=== PATIENT | female | born 1960 | race Caucasian/White ===

== ENCOUNTER → 2020-02-25 09:13 | Outpatient (BNVA) | payer BC, SELFPAY | PROVIDERS: Visit Provider Nurse Practitioner | DX: E03.0 Congenital hypothyroidism with diffuse goiter (principal); E78.2 Mixed hyperlipidemia; Z12.39 Encounter for other screening for malignant neoplasm of breast | CPT/HCPCS: 80053; 80061; 84439; 84443; 84481; 85025 ==

== ENCOUNTER 2020-03-13 09:05 | Outpatient (CLI) | payer BC, SELFPAY ==
--- NOTE | 2020-03-13 09:30 | US_ITS ---
WS: [id number] ULTRASOUND THYROID TECHNIQUE: Ultrasound of the thyroid. CLINICAL INFORMATION: enlarged thyroid COMPARISON: None. FINDINGS: Thyroid: Small thyroid volume in both thyroid lobes. No thyroid nodules are present. Right thyroid lobe: 1.4 cm x 0.7 cm x 0.4 cm Left thyroid lobe: 1.3 cm x 0.6 cm x 0.4 cm. Isthmus: 0.3 mm. Cervical lymphadenopathy: None. US/US thyroid [id number] IMPRESSION: 1. Hypoplastic small volume thyroid involving both lobes 2. No thyroid nodules
== END 2020-03-13 09:06 | disposition home or self-care (01) ==
LOC: US 09:08
PROVIDERS: PCP Nurse Practitioner; Visit Provider Nurse Practitioner
DX: E04.9 Nontoxic goiter, unspecified (principal)
CPT/HCPCS: 76536

== ENCOUNTER 2020-04-07 11:32 | Outpatient (CLI) | payer BC, SELFPAY ==
--- NOTE | 2020-04-07 12:00 | MM_ITS ---
WS: [id number] BILATERAL DIGITAL SCREENING MAMMOGRAPHY WITH CAD CLINICAL INFORMATION: screen HISTORY: Screening mammogram. No current complaints. COMPARISON: TECHNIQUE: Bilateral CC and MLO views. FINDINGS: Scattered fibroglandular densities bilaterally. No suspicious focal mass, asymmetry, calcifications, or architectural distortion. No evidence of malignancy. MM/[place] [id number] IMPRESSION: BI-RADS: 1-Negative FOLLOW UP: 1 Year Follow-up Recommend return to annual screening mammography.
== END 2020-04-07 11:33 | disposition home or self-care (01) ==
LOC: RADSHAW 11:35
PROVIDERS: PCP Nurse Practitioner; Visit Provider Nurse Practitioner
DX: Z12.31 Encounter for screening mammogram for malignant neoplasm of breast (principal)
CPT/HCPCS: 77067

== ENCOUNTER → 2020-09-07 15:08 | Outpatient (BNVA) | payer BC, SELFPAY | PROVIDERS: PCP Nurse Practitioner; Visit Provider Nurse Practitioner | DX: E03.0 Congenital hypothyroidism with diffuse goiter (principal); I10 Essential (primary) hypertension; E78.2 Mixed hyperlipidemia | CPT/HCPCS: 80053; 80061; 84443 ==

== ENCOUNTER → 2021-02-25 09:07 | Outpatient (BNVA) | payer BC, SELFPAY | PROVIDERS: PCP Nurse Practitioner; Visit Provider Nurse Practitioner | DX: I10 Essential (primary) hypertension (principal); E03.0 Congenital hypothyroidism with diffuse goiter | CPT/HCPCS: 80053; 80061; 84443 ==

== ENCOUNTER → 2021-09-27 13:48 | Outpatient (BNVA) | payer BC, SELFPAY | PROVIDERS: PCP Nurse Practitioner; Visit Provider Obstetrics & Gynecology | DX: N81.3 Complete uterovaginal prolapse (principal) | CPT/HCPCS: 81000 ==

== ENCOUNTER → 2021-10-11 10:58 | Outpatient (BNVA) | payer BC, SELFPAY | PROVIDERS: PCP Nurse Practitioner; Visit Provider Obstetrics & Gynecology | DX: N81.3 Complete uterovaginal prolapse (principal); Z20.822 Contact with and (suspected) exposure to COVID-19 | CPT/HCPCS: 87635 ==

== ENCOUNTER 2021-10-13 10:25 | Observation (INO) | payer BC, SELFPAY ==
[2021-10-11 11:34] VITALS: BMI 29.2
--- NOTE | 2021-10-11 12:04 | P.ANESASSM_ITS ---
Pre-Anesthetic Assessment Height/Weight: Height 1.6 m Weight 74.843 kg Operation Date: 10/13/21 11:20 Proposed Procedures p Total Vaginal Hysterectomy [id number]/13997/n81.3(Not Applicable) - Dudley Phan MD s Anterior Repair with allograft augmentation(Not Applicable) - Dudley Phan MD s Sling(Not Applicable) - Dudley Phan MD Familial anesthetic complications: none Social Tobacco and No alcohol Exam alert, oriented x 3, clear to auscultation bilaterally and regular rate & rhythm Airway Mallampati: Class II Dentition: false CV/HEM Hypertension None reported Hepatic None reported GI None reported Metabolic Thyroid Disease [facility] [place] None reported Neuropsych None reported Anesthetic Plan ASA status: 2 Anesthesia: General Risk of > 500 ml blood loss (7ml/kg in children): No Medications/Allergies Home Medications Medication Instructions Recorded Confirmed Last Taken Type atorvastatin 20 mg tablet 20 mg PO DAILY 30 Days #30 tab 02/28/21 10/11/21 Unknown Rx olmesartan 5 mg tablet (Benicar) 5 mg PO DAILY #30 tab 02/28/21 10/11/21 Unknown Rx levothyroxine 100 mcg tablet 100 mcg PO DAILY #30 tab 10/06/21 10/11/21 Unknown Rx Allergies Allergy/AdvReac Type Severity Reaction Status Date / Time No Known Allergies Allergy Verified 10/11/21 09:05 [facility] Anesthesia Medical History (Updated 09/27/21 @ 15:48 by Dudley Phan MD) Hyperlipidemia Hypothyroidism Surgical History History of laparoscopic cholecystectomy 2003 History of salpingectomy Bilateral with scope 1999 Family History (Updated 09/27/21 @ 13:24 by Minna Robbins RN) Father Pulmonary fibrosis bending shed worker with chemicals Mother Dementia Family/Other Diabetes maternal aunts and maternal uncles Colon cancer paternal aunt, late 70's Ovarian cancer maternal aunts 80's Sister Ovarian cancer Denies family history of Clotting disorder Heart disease Hyperlipidemia Breast cancer Anesthesia complication Bleeding disorder Hypertension Uterine cancer Thyroid condition Stroke Social History Smoking and tobacco status: current every day smoker cigarettes Packs smoked per day: 0.5 Second hand smoke exposure: Yes Smoking risk assessment/counseling performed?: Yes Alcohol intake: never Desire information about alcohol rehabilitation?: No Counseling given: No Desire information about substance/drug rehabilitation?: No Counseling given: No Adopted: No Caregiver/support person: No Lives independently: Yes Household members: spouse Housing: House Marital status: Number of children: 2 service: No Current occupational status: employed History of recent travel: No Current gender identity: Female Data Anesthesia : 10/11/21 11:47 10/11/21 11:47 Cardiac Studies: No Data to Display
[2021-10-11 12:05] LABS: Basophils % 0.5 %; Eosinophils # 0.2 10^3/uL (0.0-0.8); Eosinophils % 1.9 %; Hematocrit 43.6 % (37.0-47.0); Hemoglobin 14.4 g/dL (11.5-15.3); Lymphocytes # 1.4 10^3/uL (0.8-4.8); Lymphocytes % 16.5 %; Mean Corpuscular Hemoglobin 31.9 pg (28.0-34.0); Mean Corpuscular Volume 96.7 fl (81-99); Mean Platelet Volume 9.3 fL (7.4-10.4); Monocytes # 0.5 10^3/uL (0.2-0.9); Monocytes % 6.4 %; Neutrophils # 6.19 10^3/uL (1.8-7.7); Neutrophils % 74.5 %; Nucleated Red Blood Cells % 0 %; Platelet Count 366 10^3/cmm (130-400); Red Blood Count 4.51 10^6/uL (4.1-5.3); Red Cell Distribution Width 13.7 % (12.1-15.1); White Blood Count 8.3 10^3/uL (4.0-10.0)
[2021-10-11 12:14] LABS: Protein Urine Neg (Negative); Specific Gravity, Urine 1.005 (1.005-1.030); Urine Appearance Clear (CLEAR); Urine Color Straw (Yellow); pH Urine 6.5 (5-7)
[2021-10-11 12:15] LABS: Add Urine Culture? No; Add Urine Microscopic? YES; Bacteria Urine TRACE /hpf; Bilirubin Urine Neg (Negative); Blood Urine 2+ (Negative); Glucose Urine UA Norm (Normal); Ketones Urine Negative (Negative); Leukocyte Esterase Urine Negative (Negative); Nitrate Urine Negative (Negative); RBC Urine 0-4 /hpf (0-2); Squamous Epithelial Cell Urine 0-4 /hpf (0-5); Urobilinogen Urine Norm (Negative); WBC Urine RARE /hpf (0-5)
[2021-10-11 12:34] LABS: Alanine Aminotransferase 17 U/L (0-33); Albumin Level 4.9 g/dL (3.5-5.2); Alkaline Phosphatase 97 IU/L (35-105); Aspartate Amino Transferase 23 U/L (0-32); Blood Urea Nitrogen 11 mg/dL (8-23); Calcium 9.3 mg/dL (8.5-10.5); Carbon Dioxide 26 mmol/L (22-29); Chloride 101 mmol/L (98-107); Glomerular Filtration Rate 85.4 mL/min (90-130); Glucose 114 mg/dL (65-115); Osmolality Calculated 284 mOsm/kg (285-295); Sodium 137 mmol/L (136-145); Total Bilirubin 0.4 mg/dL (0.15-1.2); Total Protein 7.9 g/dL (6.6-8.7)
[2021-10-11 12:45] LABS: Anion Gap 14.5 (5-19); Potassium 4.5 mmol/L (3.5-5.1)
[2021-10-13] VITALS (14 sets, daily range): BP systolic 97–143; BP diastolic 65–101; PULSE 69–89; RESP 15–20; TEMP 36.3–36.5; O2SAT 93–100
--- NOTE | 2021-10-13 10:30 | W.PM.OPSUD ---
Surgery/Procedure H&P Update DATE OF PROCEDURE: October 13, 2021 DATE H&P PERFORMED: 10/11/21 H&P UPDATE INFORMATION: I have reviewed H&P completed within last 30 days and No changes to prior documentation PREOP DIAGNOSIS: Uterine prolapse stage III with cystocele PLANNED PROCEDURE: Operation Date: 10/13/21 11:20 Proposed Procedures p Total Vaginal Hysterectomy [id number]/n81.3(Not Applicable) - Dudley Phan MD s Anterior Repair with allograft augmentation(Not Applicable) - Dudley Phan MD s Sling(Not Applicable) - Dudley Phan MD
--- NOTE | 2021-10-13 10:30 | W.PM.OPSUD ---
Surgery/Procedure H&P Update DATE OF PROCEDURE: October 13, 2021 DATE H&P PERFORMED: 10/11/21 H&P UPDATE INFORMATION: I have reviewed H&P completed within last 30 days and No changes to prior documentation PREOP DIAGNOSIS: Uterine prolapse stage III with cystocele PLANNED PROCEDURE: Operation Date: 10/13/21 11:20 Proposed Procedures p Total Vaginal Hysterectomy [id number]/82205/n81.3(Not Applicable) - Dudley Phan MD s Anterior Repair with allograft augmentation(Not Applicable) - Dudley Phan MD s Sling(Not Applicable) - Dudley Phan MD
--- NOTE | 2021-10-13 10:46 | P.ANESUD_ITS ---
Pre-Anesthetic Update Pre-Anesthetic Assessment: Date of Surgery/Procedure: 10/13/21 Preop Louisa gnosis: Uterine prolapse stage III with cystocele Proposed Procedure: Operation Date: 10/13/21 11:20 Proposed Procedures p Total Vaginal Hysterectomy [id number]/58613/n81.3(Not Applicable) - Dudley Phan MD s Anterior Repair with allograft augmentation(Not Applicable) - Dudley Phan MD s Sling(Not Applicable) - Dudley Phan MD Any changes to Pre-Anesthetic Assessment?: No Last Intake: Intake Last Liquid Date 10/12/21 Last Liquid Time 21:00 Last Solid Date 10/12/21 Last Solid Time 21:00 Labs Last 48hrs: Short CBC 10/11/21 Range/Units 11:47 WBC 8.3 (4.0-10.0) 10^3/ uL Hgb 14.4 (11.5-15.3) g/dL Hct 43.6 (37.0-47.0) % MCV 96.7 (81-99) fl Plt Count 366 (130-400) 10^3/c mm Neut % (Auto) 74.5 % Neut # (Auto) 6.19 (1.8-7.7) 10^3/u L BMP 10/11/21 11:47 Sodium 137 Potassium 4.5 Chloride 101 Carbon Dioxide 26 BUN 11 Creatinine 0.7 Glucose 114 Calcium 9.3 Liver Function 10/11/21 Range/Units 11:47 Total Bilirubin 0.4 (0.15-1.2) mg/dL AST 23 (0-32) U/L ALT 17 (0-33) U/L Alkaline Phosphata se 97 (35-105) IU/L Albumin 4.9 (3.5-5.2) g/dL Urine 10/11/21 Range/Units 11:47 Urine Color Straw (Yellow) Urine Appearance Clear (CLEAR) Urine pH 6.5 (5-7) Ur Specific Gravit y 1.005 (1.005-1.030) Urine Protein Neg (Negative) Urine Glucose (UA) Norm (Normal) Urine Ketones Negative (Negative) Urine Nitrate Negative (Negative) Urine Bilirubin Neg (Negative) Ur Leukocyte Chinyere ase Negative (Negative) Urine RBC 0-4 H (0-2) /hpf Urine WBC Rare (0-5) /hpf Blood Bank 10/11/21 11:47 Blood Type B Positive Rho(D) Type Positive Antibody Screen Negative Vitals: Oxygen Delivery Me thod 10/13/21 10:40 Exam: Pre-Anes Outpt Exam: alert, oriented x 3, clear to auscultation bilaterally and regular rate & rhythm Cardiac Studies: No Data to Display
[2021-10-13] MEDS: scopolamine 1.5 Patch 1 PATCH TRANSDERMA (10:57)
[2021-10-13] MEDS: sodium chloride 0.9% 500 ML IV (10:58)
[2021-10-13] MEDS: sodium chloride 0.9% 1,000 ML 30 ML IV (11:47)
[2021-10-13] MEDS: ceFOXitin 2,000 MG in sodium chloride 0.9% (plus) 50 ML 100 MG IV (11:58)
[2021-10-13] MEDS: estrogens Conjugated Cream 30 gm 1 APPLIC VAGINAL (13:45)
--- NOTE | 2021-10-13 14:19 | P.OP_ITS ---
Operative Report Date of procedure: October 13, 2021 Pre-op diagnosis: Preop Diagnosis Uterine prolapse stage III with cystocele Post-op diagnosis: Uterine prolapse stage III with cystocele Procedure done: Total vaginal hysterectomy with bilateral salpingo-oophorectomy. Anterior colporrhaphy augmented with allograft. Single incision mid urethral sling Pathology: Uterus, left and right fallopian tube and ovaries Surgeon: Dudley Phan MD Estimated blood loss (mL): 100 IV fluids (mL): 1,300 Urine output (mL): 400 Findings: Uterine prolapse stage III Procedure: After informed consent and risks, benefits, indications and alternatives reviewed with the patient was taken to the operating room. The patient was placed in dorsal lithotomy position prepped, and draped in the usual sterile fashion. The pre-procedure timeout verifying the correct patient, procedure, site and side, could not requirements was performed and acknowledge by the OR team. A Martinez catheter was placed. A Bookwalter vaginal retractor was placed into the vagina in usual manner visualize the cervix. Cervix was grasped with a single tooth tenaculum and circumferentially infiltrated with 2% lidocaine with epinephrine. Then cervix was circumferentially incised with bovie and the bladder was dissected off the pubovesical cervical fascia anteriorly with a sponge stick and Metzenbaum scissors. The anterior peritoneal reflection was identified and the anterior cul-de-sac was entered sharply with Metzenbaum scissors. The same procedure was performed posteriorly and a posterior colpotomy was made through the posterior cul-de-sac space without difficulty and the posterior blade of the Bookwalter vaginal retractor was advanced posteriorly into the cul-de-sac. At this time, the left and right uterosacral ligaments were isolated and ligated with 0 Vicryl. The Enseal device was placed over the uterosacral ligaments on either side and was then used in a serial fashion up through the cardinal ligaments bilaterally cross-clamped, cut, and sealed with the Enseal device. Finally, the uterine arteries were cross-clamped, cut, sealed and ligated with the Enseal device. Hemostasis was assured. The broad ligaments were then serially clamped, sealed and cut with the Enseal device on both sides. Excellent hemostasis was visualized. Both cornua were clamped, sealed and cut with the Enseal device. Then the pedicles were then suture ligated with excellent hemostasis. The uterus was excised and submitted for pathologic evaluation. No other abnormalities were noted in the pelvic cavity. Then the right side Infundibular ligament was identified. The ureter was confirmed along the pelvic side wall and peristalsis was noted. The Enseal device was then used to clamp, sealed and transcepted at middistance, again being sure to be clear of the ureter and the fallopian tube and ovary were removed. The same process was then repeated on the left side. Good hemostasis was assure on both sides. Then proceeded to perform the anterior colporrhaphy augmented with allograft and single incision mid urethral sling. The anterior vaginal mucosa beneath the midurethra was infiltrated with 2% lidocaine with epinephrine. A vertical midline incision was made beneath the midurethra, nearly 1.5 cm length. Careful submucosal dissection was performed bilaterally up to the interior portion of the inferior pubic ramus. The insertion of adductor longus tendon on the patient?s pubic ramus was identified as reference land yvonne. Palpated the notch along the internal edge of ischiopubic ramus where the adductor longus tendon and the inferior pubic ramus meet. The Altis single incision sling (SIS) was selected. Then the needle of the SIS inserted aiming at the location of this notch. One of the integrated self- fixating tips place onto the needle by sliding it over the end of the needle. The needle/sling assembly was inserted toward the location of identified reference notch making sure that the flat of the handle is perpendicular to the desired path. The needle was tracked along the posterior surface of the ischiopubic ramus until the midline yvonne on the mesh is approximately at the midline position under the urethra. The needle was removed and the same was repeated on the contralateral side until the appropriate sling tension under the urethra was achieved ensuring that the mesh lays flat. The needle was removed and vaginal incision was closed in a running interlocking fashion with 2-0 Vicryl. The vaginal mucosa was then injected in the midline with normal saline. The vaginal mucosa was scored in the midline with the Bovie approximately 1 cm medial to the urethral meatus to 1 cm distal to the vaginal cuff. This vaginal mucosa was then undermined and then incised in the midline with the Metzenbaum scissors. The lateral aspects of the vaginal mucosa were then grasped with the Allis clamps and the vaginal mucosa was then dissected off the underlying fascia with the Metzenbaum scissors. Again, there was noted to be quite a bit of oozing at the incision, which was controlled with cautery. After adequate dissection was performed, bilaterally. A Coloplast allograft was modified at time of application to fit spacea, 3 x 3 cm piece . Coloplast allograft placed in front of cystocele and sutured in place with a suture placed at distal end of graft and placed towards vaginal cuff. Final suture is placed on proximal portion of the graft to complete the placement overlying the bladder. Then Interrupted vertical mattress sutures of 0 Vicryl were used to elevate the cystocele superiorly. The excessive vaginal mucosa was then trimmed with the Metzenbaum scissors and the vaginal mucosa was then reapproximated in the running interlocking fashion with 2-0 Vicryl. The peritoneum was then closed in a pursestring fashion with 0 Vicryl suture. The vaginal cuff angles were closed with [id number] #0 Vicryl suture on both sides and transfixed with the ipsilateral cardinal and uterosacral ligaments. The remainder of the vaginal cuff was closed with #0 Vicryl in a running locked fashion. At this time, instruments were removed from the vagina at hemostasis assured. Then the Martinez catheter was removed and cystoscope was inserted. The bladder was filled with sterile water. Complete evaluation of the bladder mucosa was performed noting no lacerations, dimpling, tears, bleeding of the mucosa or muscular layers. Both ureteral orifices were identified. Prompt excretion of urine from both ureteral orifices was noted. Cystoscope was withdrawn. Martinez catheter was then placed yielding clear peggy urine. A vaginal packing with Premarin cream was placed and the patient was taken out of dorsal lithotomy position and awakened from the general anesthesia. The patient tolerated the procedure well and was taken to the PACU recovery room in a stable condition. Sponge, lap, needle and instruments counts were correct x3.
[2021-10-13] MEDS: fentaNYL 50 mcg/mL INJ 2mL IVP (14:25)
--- NOTE | 2021-10-13 15:18 | ANE.PACU2 ---
Inpatient post-anesthesia follow up: Airway intact: Yes Vital signs: Temperature 97.4 F Pulse Rate 72 Respiratory Rate 18 Blood Pressure 116/76 Pulse Oximetry 95 Oxygen Delivery Me thod Nasal Cannula Oxygen Flow Rate 6 Fraction of Inspir ed Oxygen Hydration adequate: Yes Nausea and vomiting: No Pain level: 3 Mental status: Baseline
[2021-10-13] MEDS: ketorolac 30 mg/mL INJ IVP ×2 (15:43→22:01)
[2021-10-13] MEDS: dextrose 5%-lactated ringers 1,000 ML 125 ML IV (15:47)
[2021-10-13] MEDS: docusate sodium 100 mg Capsule PO (18:18)
[2021-10-14] VITALS: BP 111/70; PULSE 57; RESP 18; TEMP 36.7; O2SAT 93
[2021-10-14] MEDS: dextrose 5%-lactated ringers 1,000 ML 125 ML IV ×2 (00:20→09:33)
[2021-10-14] MEDS: ketorolac 30 mg/mL INJ IVP ×2 (03:41→09:36)
[2021-10-14 04:00] VITALS: BP 117/73; PULSE 59; RESP 20; TEMP 36.8; O2SAT 91
[2021-10-14 09:04] VITALS: BP 120/67; PULSE 69; RESP 18; O2SAT 92
[2021-10-14] MEDS: docusate sodium 100 mg Capsule PO (09:35)
[2021-10-14] MEDS: levothyroxine 100 mcg Tablet PO (09:35)
[2021-10-14] MEDS: atorvastatin 40 mg Tablet 20 MG PO (09:35)
--- NOTE | 2021-10-14 10:38 | PC.CHAP ---
Pastoral Care Encounter/Spiritual Assessment Type of Contact [] Declined bleach tester visit [] Patient/Family/Request visit [] Outpatient visit [] Follow-up visit [] Physician referral [] Code/Alert [x] Routine visit [] Staff referral [] Actively dying [] Patient sleeping [] Family support [] [] Out of room [] Palliative care [] [x] Receiving care in room [] Pre-surgical visit [] Trauma [] Long length of stay [] ICU visit [] Other: Relational/Emotional Strength [x] Patient feels connected with others/family/visitors/staff [] Distress [] Loneliness/isolation [] Abandonment Spirituality of Patient [x] Person of Jade [] Attends Anabaptism of their Jade [x] Believes in Prayer [] Reads Bible or Islam materials [] There are Spiritual issues to be addressed Transplant Nurse Practitioner Interventions [x] Prayer [x] Active listening [xx] Non-anxious presence [xx] Spiritual/emotional support [] Crisis/trauma care [x] Spiritual counseling [] Bereavement support [] Provided bereavement packet [] Provided Bible/devotional materials [] Provided toy/stuffed animal, coloring book to patient or family member [] Provided Communion [] Anointing/[place] [] Salvation [x] Completed spiritual assessment [] Other: Impact on Illness or Injury [] Angry [] Fearful [] Anxious [] Often cries [] Exhaustion [] Unable to work [] Unable to attend protestant [] Unable to walk/stand [] Unable to read [] Unable to drive [] Unable to eat/drink [] Unable to sleep [] Unable to be with family [] Patient intubated [] Other: Summary feeling better going home has a good attitude Time spent with patient 10 mins
--- NOTE | 2021-10-14 11:00 | P.DS_ITS ---
Discharge Providers STRAIGHTENER AND ALIGNER Date of Admission: 10/13/21 10:25 Date of Discharge: 10/14/21 Attending Provider at Admission: Dudley Phan MD Attending Provider at Discharge: Dudley Phan MD Primary Care Provider: EFRAIN Conde Diagnoses at Discharge Discharge Diagnosis (1) Status post vaginal hysterectomy: Details from hospital stay: Mrs. Dubose 61-year-old female is status post total vaginal hysterectomy, anterior colporrhaphy augmented with allograft and single incision mid urethral sling postoperative day 1. Status: Acute (2) Cystocele with third degree uterine prolapse: Status: Acute Reason for Visit Reason for Visit: uterine prolapse with cystocele Hospital Course Hospital Course Mrs. Gordillo with a history of uterine prolapse and associated with cystocele. Admitted for planned total vaginal hysterectomy with bilateral salpingo- oophorectomy, anterior colporrhaphy augmented with allograft, single incision mid urethral sling. The procedures were performed without complication. Overnight observation uneventful. She is afebrile and hemodynamically stable postoperative day 1. Tolerating diet well. Ambulating without difficulty. Referring no pain. PVR within normal limits. Physical Exam Narrative: GA: Alert and oriented ?3. HEENT: WNL. Heart: Regular rate and rhythm. Lungs: Clear to auscultation bilaterally. Abdomen: Bowel sounds present, nontender. AMBULANCE DRIVER PARAMEDIC: Spotting bleeding. Extremities: No edema, no cyanosis, no calves pain. Urinary Catheter Management: Martinez: Cath Placed During This Visit: yes Urinary Catheter Date of Insertion: 10/13/21 Urinary Catheter Time of Insertion: 12:30 History History History 2 Term 2 Miscarriages/Ectopic 0 0 Living Children 2 Discharge Data Studies Completed and Pending Pending at discharge Category Date Time Status ES surgery / GI images Routine Exams 10/13/21 11:38 Taken Hemagram Timed Lab 10/14/21 05:00 Uncollected Pathology: Surgical [PTH] Routine Pth 10/13/21 14:05 Received Laboratory Results WBC 8.3 10^3/uL (4.0-10.0) 10/11/21 11:47 RBC 4.51 10^6/uL (4.1-5.3) 10/11/21 11:47 Hgb 14.4 g/dL (11.5-15.3) 10/11/21 11:47 Hct 43.6 % (37.0-47.0) 10/11/21 11:47 MCV 96.7 fl (81-99) 10/11/21 11:47 MCH 31.9 pg (28.0-34.0) 10/11/21 11:47 MCHC 33.0 g/dL (30.0-36.0) 10/11/21 11:47 RDW 13.7 % (12.1-15.1) 10/11/21 11:47 Plt Count 366 10^3/cmm (130-400) 10/11/21 11:47 MPV 9.3 fL (7.4-10.4) 10/11/21 11:47 Neut % (Auto) 74.5 % 10/11/21 11:47 Lymph % (Auto) 16.5 % 10/11/21 11:47 [place] % (Auto) 6.4 % 10/11/21 11:47 Eos % (Auto) 1.9 % 10/11/21 11:47 Baso % (Auto) 0.5 % 10/11/21 11:47 Neut # (Auto) 6.19 10^3/uL (1.8-7.7) 10/11/21 11:47 Lymph # (Auto) 1.4 10^3/uL (0.8-4.8) 10/11/21 11:47 [place] # (Auto) 0.5 10^3/uL (0.2-0.9) 10/11/21 11:47 Eos # (Auto) 0.2 10^3/uL (0.0-0.8) 10/11/21 11:47 Baso # (Auto) 0.0 10^3/uL (0.0-0.1) 10/11/21 11:47 Nucleated RBC % (auto) 0 % 10/11/21 11:47 Nucleated RBCs # 0.0 /100WBC 10/11/21 11:47 Sodium 137 mmol/L (136-145) 10/11/21 11:47 Potassium 4.5 mmol/L (3.5-5.1) 10/11/21 11:47 Chloride 101 mmol/L (98-107) 10/11/21 11:47 Carbon Dioxide 26 mmol/L (22-29) 10/11/21 11:47 Anion Gap 14.5 (5-19) 10/11/21 11:47 BUN 11 mg/dL (8-23) 10/11/21 11:47 Creatinine 0.7 mg/dL (0.5-0.9) 10/11/21 11:47 GFR Calculation 85.4 mL/min (90-130) L 10/11/21 11:47 Glucose 114 mg/dL (65-115) 10/11/21 11:47 Calculated Osmolality 284 mOsm/kg (285-295) L 10/11/21 11:47 Calcium 9.3 mg/dL (8.5-10.5) 10/11/21 11:47 Total Bilirubin 0.4 mg/dL (0.15-1.2) 10/11/21 11:47 AST 23 U/L (0-32) 10/11/21 11:47 ALT 17 U/L (0-33) 10/11/21 11:47 Alkaline Phosphatase 97 IU/L (35-105) 10/11/21 11:47 Total Protein 7.9 g/dL (6.6-8.7) 10/11/21 11:47 Albumin 4.9 g/dL (3.5-5.2) 10/11/21 11:47 Globulin 3.0 g/dL (1.3-4.6) 10/11/21 11:47 Urine Color Straw (Yellow) 10/11/21 11:47 Urine Appearance Clear (CLEAR) 10/11/21 11:47 Urine pH 6.5 (5-7) 10/11/21 11:47 Ur Specific [place] 1.005 (1.005-1.030) 10/11/21 11:47 Urine Protein Neg (Negative) 10/11/21 11:47 Urine Glucose (UA) Norm (Normal) 10/11/21 11:47 Urine Ketones Negative (Negative) 10/11/21 11:47 Urine Blood 2+ (Negative) H 10/11/21 11:47 Urine Nitrate Negative (Negative) 10/11/21 11:47 Urine Bilirubin Neg (Negative) 10/11/21 11:47 Urine Urobilinogen Norm mg/dL (Negative) 10/11/21 11:47 Ur Leukocyte Esterase Negative (Negative) 10/11/21 11:47 Urine RBC 0-4 /hpf (0-2) H 10/11/21 11:47 Urine WBC Rare /hpf (0-5) 10/11/21 11:47 Ur Squamous Epith Cells 0-4 /hpf (0-5) H 10/11/21 11:47 Amorphous Sediment Not Reportable 10/11/21 11:47 Urine Bacteria Trace /hpf (NONE) 10/11/21 11:47 Blood Type B Positive 10/11/21 11:47 Rho(D) Type Positive 10/11/21 11:47 Antibody Screen Negative 10/11/21 11:47 Vitals Last Vital Signs Temp 98.3 F 10/14/21 04:00 Pulse 69 10/14/21 09:04 Resp 18 10/14/21 09:04 BP 120/67 10/14/21 09:04 Pulse Ox 92 10/14/21 09:04 Discharge Plan Discharge Patient Disposition: Home Condition: Stable Prescriptions: New hydrocodone-acetaminophen 5-325 mg tablet 1 tab PO Q4H PRN (Reason: pain) Qty: 10 0RF acetaminophen 325 mg capsule 325 mg PO Q4H PRN (Reason: fever or pain) Qty: 60 0RF docusate sodium [Colace] 100 mg capsule 100 mg PO BID Qty: 30 0RF ibuprofen 800 mg tablet 800 mg PO TID PRN (Reason: pain) Qty: 60 0RF Continued atorvastatin 20 mg tablet 20 mg PO DAILY 30 Days Qty: 30 5RF olmesartan [Benicar] 5 mg tablet 5 mg PO DAILY Qty: 30 5RF levothyroxine 100 mcg tablet 100 mcg PO DAILY Qty: 30 0RF Discharge Orders: Discharge Order (Routine); Ordered 10/14/21 Ordered By: Dudley Phan Referrals: Dudley Phan MD [Physician] - 2 weeks Discharge Diet: Soft Mechanical Discharge Activity: Limit activity as instructed Patient Instructions: Opioid Safety, Vaginal Hysterectomy (GEN), Anterior Vaginal Repair (GEN), Bladder Sling for Women (GEN), Salpingo-Oophorectomy (GEN) Activity Restrictions/Additional Instructions: 1. Please call [facility] on next working day to make your post-operative appointment in 2 weeks. 2. Please stay home until you come back to the clinic on first post-operative check up. 3. Please follow instructions on your medications CAREFULLY. 4. If you have abdominal incision, do not cover it unless dressing is necessary because of drainage. OK to shower, but avoid bath. Leave steri-strips until they fall off. If they are still on one week after surgery, you may remove them. 5. If you had vaginal surgery or vaginal repair, Dr. Phan may instruct you to take SITZ bath. 6. Yellow, blood tinged odorous vaginal discharge is usually normal after hysterectomy or vaginal surgeries. 7. No sexual intercourse, tampons, or douches until you are completely released from the post-operative care. 8. Avoid constipation by eating right and maybe using some Metamucil or Milk of Magnesia. 9. All prescription refills are given during the working hours. Please do no wait till it runs out. Call the clinic at [phone] before your medication runs out. The clinic will get in touch with your doctor to prescribe medications if necessary. 10. Please remain within 40 mile radius from our hospital because emergencies do happen now and then during the post-operative period. 11. If you have stairs at home, take one step at a time slowly and minimize the number of trips. It helps to stay in one floor for the next few days. No lifting except what you can lift by one hand until you are released from the post-operative care. 12. Driving is discouraged until you are well healed. It may be 3-4 weeks before you feel strong enough to drive. You should be able to turn and look through the rear window without pain and you should be able to push the brake pedal very hard without pain before you drive. No fast rules, but SAFETY should be your primary concern. DO NOT drive if you are on sedating medications such as narcotics. 13. Call the clinic (during working hours) to make urgent appointment or go to the Emergency room, if any of the following occurs: i. Vaginal bleeding becomes heavy, more than a period. ii. Incision becomes red and sore, or drains pus. iii. Your temperature is over 100.4 or you have chill. iv. IV site becomes red and swollen (a little ``knot?? is usually OK) v. Persistent nausea and vomiting vi. Persistent constipation or diarrhea vii. Rash or allergic reaction to medications. Discharge Attestations STRAIGHTENER AND ALIGNER Time Spent in Discharge Care*: greater than 30 min Coding Level of Care Code Acute Material Reclaimer for Chg Fwd Diagnoses Status post vaginal hysterectomy Z90.710 Cystocele with third degree uterine prolapse N81.3
[2021-10-14 11:36] VITALS: BP 115/75; PULSE 87; RESP 16; TEMP 36.6; O2SAT 92
== END 2021-10-14 14:00 | disposition home or self-care (01) ==
LOC: MEDSURG 10:26
PROVIDERS: Admitting Provider Obstetrics & Gynecology; PCP Nurse Practitioner; Visit Provider Obstetrics & Gynecology
PROC: (CPT 57240; principal; 2021-10-13 11:10)
PROC: 0JQC0ZZ Repair Pelvic Region Subcutaneous Tissue and Fascia, Open Approach (ICD-10-PCS; CPT 57240; 2021-10-13 11:10)
PROC: (CPT 57288; 2021-10-13 11:10)
DX: N81.3 Complete uterovaginal prolapse (principal); E78.5 Hyperlipidemia, unspecified; E03.9 Hypothyroidism, unspecified; F17.210 Nicotine dependence, cigarettes, uncomplicated
CPT/HCPCS: 57240; 57288; 58262; 36415; 80053; 81001; 85025; 86850; 86900; 88305; C1713; C1762; G0378; J0694; J1100; J1885; J2405; J2704; J3010; J3490; J7030; J7040; Q9968

== ENCOUNTER 2021-10-17 09:13 | Emergency (ER) | payer BC, SELFPAY ==
[2021-10-17 09:18] VITALS: BP 158/97; PULSE 80; RESP 18; TEMP 37; O2SAT 97; BMI 29.2
[2021-10-17 09:21] VITALS: BP 158/97; PULSE 68; RESP 16; TEMP 36.4; O2SAT 98
--- NOTE | 2021-10-17 09:24 | ECG_ITS ---
[facility] Test Date: 2021-10-17 Pat Name: Zeny Moran Department: Room: Gender: Female Telegraph Installer: : 1960 Requested By: Dionne Castillo Order Number: [id number] María MD: Abdoulaye Calloway M.D. Measurements Intervals [place] Rate: 71 P: 66 WV: 178 QRS: 8 QRSD: 109 T: -3 QT: 372 QTc: 406 Interpretive Statements SINUS RHYTHM INTERPRETATION BASED ON A DEFAULT AGE OF 40 YEARS No previous ECG available for comparison Electronically Signed On 10-17-2021 17:27:42 CDT by Abdoulaye Calloway M.D. [id number] f
--- NOTE | 2021-10-17 09:35 | W.ED.SYNCOPE ---
HPI - Syncope General: Chief Complaint: Syncope Stated Complaint: WEAKNESS; SYNCOPE Time Seen by Provider: 10/17/21 09:22 History of Present Illness: 61-year-old female underwent Vag-hyst on 10/13/21. This morning was sitting on the toilet for 15-20min, trying to have a BM, started feeling dizzy, sweaty; passed out on her way to her bed. She feels back to normal now. No bleeding, fever, abdominal pain, abnormal discharge, dysuria. She has been tolerating PO. SHe did not hit her head. No neck pain. Review of Systems General: Reports: 10 or more systems reviewed and unremarkable except in HPI and below PFSH ED PFSH: Medical History Hyperlipidemia Hypothyroidism Surgical History History of laparoscopic cholecystectomy 2003 History of salpingectomy Bilateral with scope 1999 Family History Father Pulmonary fibrosis mechanical repair worker with chemicals Mother Dementia Family/Other Diabetes maternal aunts and maternal uncles Colon cancer paternal aunt, late 70's Ovarian cancer maternal aunts 80's Sister Ovarian cancer Denies family history of Clotting disorder Heart disease Hyperlipidemia Breast cancer Anesthesia complication Bleeding disorder Hypertension Uterine cancer Thyroid condition Stroke Social History Smoking and tobacco status: current every day smoker cigarettes Packs smoked per day: 0.5 Second hand smoke exposure: Yes Smoking risk assessment/counseling performed?: Yes Alcohol intake: never Desire information about alcohol rehabilitation?: No Counseling given: No Desire information about substance/drug rehabilitation?: No Counseling given: No Adopted: No Caregiver/support person: No Lives independently: Yes Household members: spouse Housing: House Marital status: Number of children: 2 service: No Current occupational status: employed History of recent travel: No Current gender identity: Female Physical Exam Const: COMMON NORMALS: no acute distress, average body habitus, patient oriented x3, healthy appearing and alert HENMT: COMMON NORMALS: normocephalic and atraumatic HEAD & SCALP: normal to inspection, normocephalic and atraumatic FACE & SINUS: normal facial exam Eye: GENERAL EYE: appearance normal, both eyes and all related structures Neck/C-Spine: CERVICAL SPINE: Yes cervical ROM normal Resp: EFFORT & INSPECTION: Yes able to speak in complete sentences, No respiratory distress and No labored Cardio: COMMON NORMALS: regular rate and regular rhythm RATE: regular rate RHYTHM: regular rhythm GI: COMMON NORMALS: Soft to palpation INSPECTION: Yes normal to inspection and No abdominal distension PALPATION: Yes Soft to palpation, No Tenderness to palpation present (GI) and No Guarding due to palpation present (GI) : BIMANUAL EXAM - ADNEXA, OTHER: Yes normal rectovaginal exam RECTO-VAGINAL: normal rectovaginal exam Back/Pelvis: PELVIS: Yes buttock abnormal Buttock abnormal laterality: bilateral Bilateral buttock abnormal details: erythema Neuro: COMMON NORMALS: patient oriented x3 SENSORIUM/ORIENTATION: Yes alert Skin: COMMON NORMALS: no rashes or lesions noted and turgor normal GENERAL SKIN EXAM: no rashes or lesions noted and turgor normal Course Vital Signs: Vital signs: Vital Signs Temperature 97.6 F 10/17/21 09:21 Pulse Rate 80 10/17/21 12:02 Respiratory Rate 18 10/17/21 12:02 Blood Pressure 136/93 10/17/21 12:02 Pulse Oximetry 100 10/17/21 12:02 MDM - Syncope Medical Decision Making 7-year-old female with syncopal episode after sitting on the toilet for prolonged period of time straining to have a BM. She is now back to baseline. No acute abnormalities on lab work. No UTI. No dizziness with ambulation. Stable for discharge home, syncope precautions, avoid straining etc. Medical Records I reviewed the patient's medical records. Lab Data I reviewed the patient's lab results. : 10/17/21 09:49 10/17/21 09:49 Laboratory Results WBC 7.2 10^3/uL (4.0-10.0) 10/17/21 09:49 RBC 4.01 10^6/uL (4.1-5.3) L 10/17/21 09:49 Hgb 12.7 g/dL (11.5-15.3) 10/17/21 09:49 Hct 38.9 % (37.0-47.0) 10/17/21 09:49 MCV 97.0 fl (81-99) 10/17/21 09:49 MCH 31.7 pg (28.0-34.0) 10/17/21 09:49 MCHC 32.6 g/dL (30.0-36.0) 10/17/21 09:49 RDW 13.6 % (12.1-15.1) 10/17/21 09:49 Plt Count 311 10^3/cmm (130-400) 10/17/21 09:49 MPV 9.8 fL (7.4-10.4) 10/17/21 09:49 Neut % (Auto) 79.1 % 10/17/21 09:49 Lymph % (Auto) 10.2 % 10/17/21 09:49 [place] % (Auto) 6.8 % 10/17/21 09:49 Eos % (Auto) 2.8 % 10/17/21 09:49 Baso % (Auto) 0.8 % 10/17/21 09:49 Neut # (Auto) 5.66 10^3/uL (1.8-7.7) 10/17/21 09:49 Lymph # (Auto) 0.7 10^3/uL (0.8-4.8) L 10/17/21 09:49 [place] # (Auto) 0.5 10^3/uL (0.2-0.9) 10/17/21 09:49 Eos # (Auto) 0.2 10^3/uL (0.0-0.8) 10/17/21 09:49 Baso # (Auto) 0.1 10^3/uL (0.0-0.1) 10/17/21 09:49 Nucleated RBC % (auto) 0 % 10/17/21 09:49 Nucleated RBCs # 0.0 /100WBC 10/17/21 09:49 Sodium 138 mmol/L (136-145) 10/17/21 09:49 Potassium 4.0 mmol/L (3.5-5.1) 10/17/21 09:49 Chloride 104 mmol/L (98-107) 10/17/21 09:49 Carbon Dioxide 24 mmol/L (22-29) 10/17/21 09:49 Anion Gap 14.0 (5-19) 10/17/21 09:49 BUN 8 mg/dL (8-23) 10/17/21 09:49 Creatinine 0.8 mg/dL (0.5-0.9) 10/17/21 09:49 GFR Calculation 73.2 mL/min (90-130) L 10/17/21 09:49 Glucose 110 mg/dL (65-115) 10/17/21 09:49 Calculated Osmolality 285 mOsm/kg (285-295) 10/17/21 09:49 Calcium 9.5 mg/dL (8.5-10.5) 10/17/21 09:49 Magnesium 2.0 mg/dL (1.7-2.3) 10/17/21 09:49 Total Bilirubin 0.4 mg/dL (0.15-1.2) 10/17/21 09:49 AST 20 U/L (0-32) 10/17/21 09:49 ALT 19 U/L (0-33) 10/17/21 09:49 Alkaline Phosphatase 84 IU/L (35-105) 10/17/21 09:49 C-Reactive Protein 4.6 mg/L (0.0-4.9) 10/17/21 09:49 Total Protein 6.4 g/dL (6.6-8.7) L 10/17/21 09:49 Albumin 4.1 g/dL (3.5-5.2) 10/17/21 09:49 Globulin 2.3 g/dL (1.3-4.6) 10/17/21 09:49 Urine Color Yellow (Yellow) 10/17/21 10:00 Urine Appearance Clear (CLEAR) 10/17/21 10:00 Urine pH 8 (5-7) H 10/17/21 10:00 Ur Specific [place] 1.005 (1.005-1.030) 10/17/21 10:00 Urine Protein Neg (Negative) 10/17/21 10:00 Urine Glucose (UA) Norm (Normal) 10/17/21 10:00 Urine Ketones Negative (Negative) 10/17/21 10:00 Urine Blood 2+ (Negative) H 10/17/21 10:00 Urine Nitrate Negative (Negative) 10/17/21 10:00 Urine Bilirubin Neg (Negative) 10/17/21 10:00 Prot Sulfosalicylic Acd Negative (Negative) 10/17/21 10:00 Urine Urobilinogen Norm mg/dL (Negative) 10/17/21 10:00 Ur Leukocyte Esterase Negative (Negative) 10/17/21 10:00 Urine RBC 5-10 /hpf (0-2) H 10/17/21 10:00 Urine WBC 0-4 /hpf (0-5) H 10/17/21 10:00 Ur Squamous Epith Cells 0-4 /hpf (0-5) H 10/17/21 10:00 Amorphous Sediment Not Reportable 10/17/21 10:00 Urine Bacteria Trace /hpf (NONE) 10/17/21 10:00 Discharge Plan Discharge Patient Disposition: Home Clinical Impression: Vasovagal syncope Condition: Stable Prescriptions: No Action atorvastatin 20 mg tablet 20 mg PO DAILY 30 Days Qty: 30 5RF olmesartan [Benicar] 5 mg tablet 5 mg PO DAILY Qty: 30 5RF levothyroxine 100 mcg tablet 100 mcg PO DAILY Qty: 30 0RF acetaminophen 325 mg capsule 325 mg PO Q4H PRN (Reason: fever or pain) Qty: 60 0RF ibuprofen 800 mg tablet 800 mg PO TID PRN (Reason: pain) Qty: 60 0RF hydrocodone-acetaminophen 5-325 mg tablet 1 tab PO Q4H PRN (Reason: pain) Qty: 10 0RF Colace 100 mg capsule 100 mg PO BID Qty: 30 0RF Discharge Orders: Discharge ED (Routine); Ordered 10/17/21 Ordered By: Dionne Castillo Referrals: Rebecca Dukes, GRAVURE PRESS OPERATOR-C [Primary Care Provider] - Discharge Diet: Advance as tolerated Discharge Activity: Increase activity as tolerated Patient Instructions: Syncope (ED) Activity Restrictions/Additional Instructions: Make sure to avoid straining or sitting on the toilet for more than 5-10 min at the time. Stand up slowly, use caution to avoid falling. Follow-up with your [facility] next week. Return immediately to the ER if you develop recurrent fainting spells, severe headache, fever, bleeding, or any other concerning changes. Coding Level of Care Code ED Therapy Administrative Assistant for Dereck Brunner
[2021-10-17 10:13] LABS: Basophils # 0.1 10^3/uL (0.0-0.1); Basophils % 0.8 %; Eosinophils # 0.2 10^3/uL (0.0-0.8); Eosinophils % 2.8 %; Hematocrit 38.9 % (37.0-47.0); Hemoglobin 12.7 g/dL (11.5-15.3); Lymphocytes # 0.7 10^3/uL (0.8-4.8); Lymphocytes % 10.2 %; Mean Corpuscular HGB Conc 32.6 g/dL (30.0-36.0); Mean Corpuscular Hemoglobin 31.7 pg (28.0-34.0); Mean Platelet Volume 9.8 fL (7.4-10.4); Monocytes # 0.5 10^3/uL (0.2-0.9); Monocytes % 6.8 %; Neutrophils # 5.66 10^3/uL (1.8-7.7); Neutrophils % 79.1 %; Nucleated Red Blood Cells % 0 %; Platelet Count 311 10^3/cmm (130-400); Red Blood Count 4.01 10^6/uL (4.1-5.3); Red Cell Distribution Width 13.6 % (12.1-15.1); White Blood Count 7.2 10^3/uL (4.0-10.0)
[2021-10-17 10:34] LABS: Alanine Aminotransferase 19 U/L (0-33); Albumin Level 4.1 g/dL (3.5-5.2); Alkaline Phosphatase 84 IU/L (35-105); Aspartate Amino Transferase 20 U/L (0-32); Blood Urea Nitrogen 8 mg/dL (8-23); C Reactive Protein 4.6 mg/L (0.0-4.9); Calcium 9.5 mg/dL (8.5-10.5); Carbon Dioxide 24 mmol/L (22-29); Chloride 104 mmol/L (98-107); Globulin 2.3 g/dL (1.3-4.6); Glomerular Filtration Rate 73.2 mL/min (90-130); Glucose 110 mg/dL (65-115); Osmolality Calculated 285 mOsm/kg (285-295); Sodium 138 mmol/L (136-145); Total Bilirubin 0.4 mg/dL (0.15-1.2); Total Protein 6.4 g/dL (6.6-8.7)
[2021-10-17 10:36] VITALS: BP 113/67; PULSE 99; RESP 16; O2SAT 99
[2021-10-17 11:13] VITALS: BP 131/73; PULSE 63; RESP 16; O2SAT 96
[2021-10-17 11:25] LABS: Add Urine Microscopic? YES; Bilirubin Urine Neg (Negative); Blood Urine 2+ (Negative); Glucose Urine UA Norm (Normal); Ketones Urine Negative (Negative); Leukocyte Esterase Urine Negative (Negative); Nitrate Urine Negative (Negative); Protein Urine Neg (Negative); Specific Gravity, Urine 1.005 (1.005-1.030); Urine Appearance Clear (CLEAR); Urine Color Yellow (Yellow); Urobilinogen Urine Norm (Negative); pH Urine 8 (5-7)
[2021-10-17 11:26] LABS: Add Urine Culture? No; Bacteria Urine TRACE /hpf; Squamous Epithelial Cell Urine 0-4 /hpf (0-5); Sulfosalicylic Acid Urine Negative (Negative); WBC Urine 0-4 /hpf (0-5)
--- NOTE | 2021-10-17 12:01 | PC.NURSE ---
Pt ambulatory in hallway without difficulty.
[2021-10-17 12:02] VITALS: BP 136/93; PULSE 80; RESP 18; O2SAT 100
== END 2021-10-17 12:03 | disposition home or self-care (01) ==
PROVIDERS: Emergency Provider Family Medicine; PCP Nurse Practitioner
DX: R55 Syncope and collapse (principal); E78.5 Hyperlipidemia, unspecified; F17.210 Nicotine dependence, cigarettes, uncomplicated
CPT/HCPCS: 80053; 81001; 83735; 85025; 86140; 93005; 99283

== ENCOUNTER → 2021-11-12 09:07 | Outpatient (BNVA) | payer BC, SELFPAY | PROVIDERS: PCP Nurse Practitioner; Visit Provider Nurse Practitioner | DX: I10 Essential (primary) hypertension (principal); E03.0 Congenital hypothyroidism with diffuse goiter; E03.9 Hypothyroidism, unspecified | CPT/HCPCS: 80053; 80061; 84439; 84443; 84481 ==

== ENCOUNTER → 2022-02-16 11:26 | Outpatient (BNVA) | payer BC, SELFPAY | PROVIDERS: PCP Nurse Practitioner; Visit Provider Nurse Practitioner | DX: I10 Essential (primary) hypertension (principal); E78.2 Mixed hyperlipidemia; E03.9 Hypothyroidism, unspecified | CPT/HCPCS: 80053; 80061 ==

== ENCOUNTER → 2022-07-20 11:28 | Outpatient (BNVA) | payer BC, SELFPAY | PROVIDERS: PCP Nurse Practitioner; Visit Provider Nurse Practitioner | DX: E03.0 Congenital hypothyroidism with diffuse goiter (principal); E78.2 Mixed hyperlipidemia; I10 Essential (primary) hypertension; F41.8 Other specified anxiety disorders; E03.9 Hypothyroidism, unspecified | CPT/HCPCS: 80053; 80061; 84443 ==

== ENCOUNTER → 2022-12-30 09:33 | Outpatient (BNVA) | payer BC, SELFPAY | PROVIDERS: PCP Nurse Practitioner; Visit Provider Nurse Practitioner | DX: E78.2 Mixed hyperlipidemia (principal); E03.0 Congenital hypothyroidism with diffuse goiter; I10 Essential (primary) hypertension; E78.5 Hyperlipidemia, unspecified | CPT/HCPCS: 80053; 80061; 84443 ==

== ENCOUNTER → 2023-08-03 10:06 | Outpatient (BNVA) | payer BC, SELFPAY | PROVIDERS: PCP Nurse Practitioner; Visit Provider Nurse Practitioner | DX: I10 Essential (primary) hypertension (principal); E78.2 Mixed hyperlipidemia; E03.9 Hypothyroidism, unspecified; J06.9 Acute upper respiratory infection, unspecified; E03.0 Congenital hypothyroidism with diffuse goiter | CPT/HCPCS: 80053; 80061; 84443 ==

== ENCOUNTER → 2024-01-29 11:31 | Outpatient (BNVA) | payer BC, SELFPAY | PROVIDERS: PCP Nurse Practitioner; Visit Provider Nurse Practitioner | DX: I10 Essential (primary) hypertension (principal); E03.0 Congenital hypothyroidism with diffuse goiter; E78.2 Mixed hyperlipidemia | CPT/HCPCS: 80053; 80061; 84443 ==

== ENCOUNTER 2024-02-06 10:16 | Outpatient (CLI) | payer BC, SELFPAY ==
--- NOTE | 2024-02-06 10:20 | MM_ITS ---
WS: [id number] Bilateral screening 3D tomosynthesis digital mammogram, 02/06/2024 Clinical Data: Z12.31 - Encounter for screening mammogram for malignant ... Comparison: 04/07/2020, 01/23/2018. Findings: The breast parenchymal pattern shows fibroglandular tissue. No spiculated masses or clustered calcifi cations are seen. There are no secondary signs of carcinoma. Mole markers are on both breasts. MM/[place] [id number] Impression: 1. Negative bilateral mammogram unchanged. 2. Recommend annual screening mammograms. BIRADS: 1-Negative FOLLOW UP: 1 Year Follow-up The CAD photo checker was used.
== END 2024-02-06 10:17 | disposition home or self-care (01) ==
LOC: MOBLMAM 10:26
PROVIDERS: PCP Obstetrics & Gynecology; Visit Provider Obstetrics & Gynecology
DX: Z12.31 Encounter for screening mammogram for malignant neoplasm of breast (principal)
CPT/HCPCS: 77063; 77067

== ENCOUNTER → 2024-07-15 11:15 | Outpatient (BNVA) | payer BC, SELFPAY | PROVIDERS: PCP Obstetrics & Gynecology; Visit Provider Nurse Practitioner | DX: I10 Essential (primary) hypertension (principal); E78.2 Mixed hyperlipidemia; E03.0 Congenital hypothyroidism with diffuse goiter; E55.9 Vitamin D deficiency, unspecified | CPT/HCPCS: 80053; 80061; 82306; 84443 ==

== ENCOUNTER 2024-10-29 12:25 | Emergency (ER) | payer BC, SELFPAY ==
[2024-10-29 12:29] VITALS: BP 153/91; PULSE 99; RESP 17; TEMP 36.6; O2SAT 98; BMI 29.2
--- NOTE | 2024-10-29 12:41 | CT_ITS ---
WS: [id number] CT HEAD NONCONTRAST HISTORY: fall TECHNIQUE: Contiguous axial imaging performed through the brain. Bone and soft tissue windows. Sagittal and coronal reformats reviewed. All CT scans at [facility] use at least one of these dose optimization techniques: automated exposure control; mA and/or kV adjustment per patient size (includes targeted exams where dose is matched to clinical indication); or iterative reconstruction. DLP: 1314.17 mGy.cm COMPARISON: None available. No acute intracranial hemorrhage, midline shift or mass effect. No atrophy or prior infarcts or herniation. Ventricles: Normal size with no hydrocephalus. Paranasal sinuses: As visualized are clear. Mastoid air cells: Well pneumatized. Calvarium and scalp: Skull is intact with no soft tissue edema or swelling. CT/CT head wo con* [id number] IMPRESSION: 1. No acute intracranial hemorrhage or edema. 2. No skull fracture or scalp hematoma.
--- NOTE | 2024-10-29 12:41 | CT_ITS ---
WS: [id number] CT CERVICAL SPINE HISTORY: fall TECHNIQUE: Contiguous 2.0 mm axial imaging performed through the entire cervical spine. Sagittal and coronal reformats also performed. All CT scans at [facility] use at least one of these dose optimization techniques: automated exposure control; mA and/or kV adjustment per patient size (includes targeted exams where dose is matched to clinical indication); or iterative reconstruction. DLP: 1314.17 mGy.cm COMPARISON: None available. Straightening of the normal cervical spine. C4 anterolisthesis by 2 mm. C5-6 and C6-7 advanced degenerative disc disease with hypertrophic osteophytes. Facet joints are aligned. Degenerative changes within the facet joints. No fracture. Bilateral facet joint arthropathy. Moderate LEFT foraminal stenosis at the C3-4, RIGHT at C5-6, bilaterally at C5- 6, bilaterally at C6-7. Paravertebral soft tissues are negative. Scattered calcifications in the carotid arteries. Lung apices are clear. CT/CT cervical spin wo con* [id number] IMPRESSION: 1. No acute cervical spine fracture. 2. 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 No malalignment.
--- NOTE | 2024-10-29 14:07 | ED_ITS ---
HPI - Headache General: Chief Complaint: Headache Stated Complaint: L side back of head pain, fall, nausea Time Seen by Provider: 10/29/24 13:59 Source: patient Mode of arrival: ambulatory Limitations: no limitations History of Present Illness: 64-year-old female states she had fell o n states she landed on her right shoulder jerked her head and neck states since then she has actually been having right sided neck pain with some tenderness and a headache that is posterior she rates the pain a 5 out of 10 she denies any loss conscious denies any vomiting denies any other injuries Associated symptoms: Deny chest pain, fever(s), nausea, rash or vomiting Related Data Previous Rx's ?Medication ?Instructions ?Recorded acetaminophen 325 mg capsule 325 mg PO Q4H PRN fever o r pain 10/14/21 #60 caps atorvastatin 20 mg tablet 20 mg PO DAILY 30 days #30 t abs 07/15/24 levothyroxine 100 mcg tablet 100 mcg PO DAILY #30 tabs 07/15/24 olmesartan 5 mg tablet (Benicar) 5 mg PO DAILY #30 tab s 07/15/24 methocarbamol 750 mg tablet 750 mg PO Q6H PRN spasms # 20 tabs 10/29/24 naproxen 500 mg tablet (Naprosyn) 500 mg PO BID PRN pa in #20 tabs 10/29/24 Allergies Allergy/AdvReac Type Severity Reaction Status Date / Time No Known Allergies Allergy Verified 07/15/24 10:37 Review of Systems Const: Denies: fever(s), chills, body aches or change in appetite Eyes: Denies: blurry vision ENMT: Denies: throat pain or dental pain Card: Denies: chest pain Resp: Denies: dyspnea GI: Denies: abdominal pain, nausea, vomiting or diarrhea Musc: Reports: neck pain; Denies: back pain Skin/Breast: Denies: rash Neuro: Reports: headache(s) PFS ED PFSH: Medical History Hyperlipidemia Hypothyroidism Surgical History H/O: hysterectomy 10/13/2021- TVH with BSO, anterior colporrhaphy augmented with allograft, SIS performed by Dr. Phan at [facility] History of salpingectomy Bilateral with scope 1999 History of laparoscopic cholecystectomy 2003 Family History Father Pulmonary fibrosis asbestos removal worker with chemicals Mother Dementia Family/Other Diabetes maternal aunts and maternal uncles Colon cancer paternal aunt, late 70's Ovarian cancer maternal aunts 80's Sister Ovarian cancer Denies family history of Clotting disorder Heart disease Hyperlipidemia Breast cancer Anesthesia complication Bleeding disorder Hypertension Uterine cancer Thyroid disease Stroke Social History Smoking and tobacco/nicotine status: current every day tobacco/nicotine user Alcohol intake: unknown Substance/Drug Use: never Adopted: No Lives independently: Yes Household members: spouse Housing: House Marital status: service: No Current occupational status: employed Do you think of yourself as: Straight/Heterosexual Current gender identity: Female Physical Exam Const: COMMON NORMALS: no acute distress, patient oriented x3 and healthy appearing HENMT: COMMON NORMALS: normocephalic HEAD & SCALP: normocephalic OTHER: Tenderness to posterior scalp no obvious deformity Eye: COMMON NORMALS: Equal, round and reactive pupils present and EOMs intact bilaterally PUPIL: Yes Equal, round and reactive pupils present Neck/C-Spine: COMMON NORMALS: full ROM and supple OTHER: Tenderness right sided neck no midline tenderness Chest: COMMONS NORMALS: normal inspection of the chest Resp: COMMON NORMALS: normal respiratory effort Cardio: COMMON NORMALS: regular rate RATE: regular rate Extremity: COMMON NORMALS: normal to inspection and full ROM Neuro: COMMON NORMALS: patient oriented x3, moves all extremities and no focal motor deficits Psych: COMMON NORMALS: mental status grossly normal, Normal thought process present and cooperative THOUGHT PROCESS: Normal thought process present Skin: COMMON NORMALS: no rashes or lesions noted and no wounds GENERAL SKIN EXAM: no rashes or lesions noted Course Vital Signs: Vital signs: Vital Signs Temperature 97.8 F 10/29/24 12:29 Pulse Rate 99 10/29/24 12:29 Respiratory Rate 17 10/29/24 12:29 Blood Pressure 153/91 10/29/24 12:29 Pulse Oximetry 98 10/29/24 12:29 Oxygen Delivery Me thod Room Air 10/29/24 12:29 MDM - Headache Medical Decision Making Patient presents here with cervical strain from a fall imaging here is normal patient stable for discharge we will place her on anti-inflammatories muscle accident she is to ice she is follow-up with PCP return if worsening Medical Records I reviewed the patient's medical records. Lab Data I reviewed the patient's lab results. Radiology Impressions Cervical Spine CT 10/29/24 12:41 IMPRESSION: 1. No acute cervical spine fracture. 2. 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 No malalignment. Head CT 10/29/24 12:41 IMPRESSION: 1. No acute intracranial hemorrhage or edema. 2. No skull fracture or scalp hematoma. All radiology interpretation(s) finalized by discharge Discharge Plan Discharge Patient Disposition: Home Clinical Impression: Cervical strain, Headache, Closed head injury Condition: Stable Prescriptions: New methocarbamol 750 mg tablet 750 mg PO Q6H PRN (Reason: spasms) Qty: 20 0RF naproxen [Naprosyn] 500 mg tablet 500 mg PO BID PRN (Reason: pain) Qty: 20 0RF No Action atorvastatin 20 mg tablet 20 mg PO DAILY 30 Days Qty: 30 5RF levothyroxine 100 mcg tablet 100 mcg PO DAILY Qty: 30 5RF olmesartan [Benicar] 5 mg tablet 5 mg PO DAILY Qty: 30 5RF acetaminophen 325 mg capsule 325 mg PO Q4H PRN (Reason: fever or pain) Qty: 60 0RF Discharge Orders: Discharge ED (Routine); Ordered 10/29/24 Ordered By: Robi Bradford Referrals: Rebecca Dukes, [facility] [facility] [facility] [Primary Care Provider] - 4-7 days Discharge Diet: Advance as tolerated Discharge Activity: Resume usual activity Patient Instructions: Cervical Strain (ED) Print Language: Serbian Coding Level of Care Code ED Outdoor Guide for Dereck Brunner
[2024-10-29] MEDS: HYDROcodone-acetaminophen 5-325 mg Tablet 1 TAB PO (14:51)
[2024-10-29] MEDS: methocarbamol 750 mg Tablet 1500 MG PO (14:51)
[2024-10-29 15:01] VITALS: BP 147/93; PULSE 96; RESP 16; O2SAT 97
== END 2024-10-29 14:57 | disposition home or self-care (01) ==
PROVIDERS: Emergency Provider Emergency Medicine; PCP Nurse Practitioner
DX: S16.1XXA Strain of muscle, fascia and tendon at neck level, initial encounter (principal); R51.9 Headache, unspecified; S09.8XXA Other specified injuries of head, initial encounter; Z72.0 Tobacco use; E78.5 Hyperlipidemia, unspecified; W19.XXXA Unspecified fall, initial encounter
CPT/HCPCS: 70450; 72125; 99284; J9999

== ENCOUNTER → 2025-01-28 16:00 | Outpatient (BNVA) | payer BC, SELFPAY | PROVIDERS: PCP Nurse Practitioner; Visit Provider Nurse Practitioner | DX: E78.2 Mixed hyperlipidemia (principal); I10 Essential (primary) hypertension; E03.0 Congenital hypothyroidism with diffuse goiter | CPT/HCPCS: 80053; 80061; 84443 ==

== ENCOUNTER 2025-04-08 11:00 | Outpatient (CLI) | payer BC, SELFPAY ==
--- NOTE | 2025-04-08 11:00 | MM_ITS ---
WS: [id number] BILATERAL 3D TOMOSYNTHESIS DIGITAL SCREENING MAMMOGRAPHY WITH CAD CLINICAL INFORMATION: Z12.31 - Encounter for screening mammogram for malignant ... HISTORY: Screening mammogram. No current complaints. COMPARISON: 2023 TECHNIQUE: Bilateral CC and MLO views. FINDINGS: Scattered fibroglandular densities bilaterally. No suspicious focal mass, asymmetry, calcifications, or architectural distortion. No evidence of malignancy. MM/MM scr tomosynthesis [id number] IMPRESSION: DENSITY: There are scattered areas of fibroglandular density. BI-RADS: 1 - Negative. FOLLOW UP: 1 Year Follow-up Recommend return to annual screening mammography.
== END 2025-04-08 11:01 | disposition home or self-care (01) ==
LOC: MOBLMAM 11:00
PROVIDERS: PCP Nurse Practitioner; Visit Provider Nurse Practitioner
DX: Z12.31 Encounter for screening mammogram for malignant neoplasm of breast (principal); R92.323 Mammographic fibroglandular density, bilateral breasts
CPT/HCPCS: 77063; 77067

== ENCOUNTER → 2025-07-14 11:11 | Outpatient (BNVA) | payer BC, SELFPAY | PROVIDERS: PCP Nurse Practitioner; Visit Provider Nurse Practitioner | DX: E55.9 Vitamin D deficiency, unspecified (principal); E03.0 Congenital hypothyroidism with diffuse goiter; I10 Essential (primary) hypertension; E78.2 Mixed hyperlipidemia | CPT/HCPCS: 80053; 80061; 82306; 84439; 84443; 84481 ==